=== PATIENT | female | born 1970 | race Caucasian/White ===

== ENCOUNTER 2018-01-21 02:54 | Observation (INO) ==
[2018-01-21 03:02] VITALS: BMI 21.1
--- NOTE | 2018-01-21 03:31 | RAD ---
Chest, one view Indication: Chest pain Comparison: 03/11/2014 Findings: The patient is rotated to the left. Accounting for this, the cardiac silhouette is stable. The lungs are grossly clear without focal infiltrates or pleural effusion. Thoracic dextroscoliosis i s similar to prior. Impression: No acute chest process. Reported By:
[2018-01-21 03:40] LABS: BASOPHILS # (AUTO) 0.1 X10^3/uL (0.0-0.1); BASOPHILS % (AUTO) 1.5 % (0.2-1.0); EOSINOPHILS # (AUTO) 0.4 x10^3/uL (0.0-0.2); EOSINOPHILS % (AUTO) 7.7 % (0.9-2.9); HEMOGLOBIN 12.5 g/dL (12.0-16.0); LYMPHOCYTES # (AUTO) 2.5 X10^3/uL (1.3-2.9); LYMPHOCYTES % (AUTO) 54.5 % (21.0-51.0); MEAN CORPUSCULAR HEMOGLOBIN 32.3 pg (27.0-34.0); MEAN CORPUSCULAR HGB CONC 33.6 g/dL (33.0-35.0); MEAN CORPUSCULAR VOLUME 95.9 fL (80.0-100.0); MEAN PLATELET VOLUME 8.5 fL (7.4-11.0); MONOCYTES # (AUTO) 0.3 x10^3/uL (0.3-0.8); MONOCYTES % (AUTO) 7.5 % (0.0-13.0); NEUTROPHILS # (AUTO) 1.3 x10^3/uL (2.2-4.8); NEUTROPHILS % (AUTO) 28.8 % (42.0-75.0); PLATELET COUNT 343 X10^3/uL (150.0-450.0); RED BLOOD COUNT 3.86 X10^6/uL (3.5-5.4); RED CELL DISTRIBUTION WIDTH 13.1 % (11.6-16.5); WHITE BLOOD COUNT 4.5 X10^3/uL (3.6-10.0)
--- NOTE | 2018-01-21 03:49 | DR.CP ---
HPI Time Seen Time Seen by Provider: 01/21/18 03:32 PCP Primary Care Physician: SYLVESTER Complaint Chief Complaint Doctor Comments: Patient states that has chest tightness, rapid beating that is ongoing. She denies a history of cardiac disease. She states that she was referred to a molecular biology scientist a few weeks ago because her feet would turn blue. Chief Complaint:: PT STATES" FOR A MINUTE IT FELT LIKE MY HEART WAS GOING TO BEAT OUT OF MY CHEST. 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 Family History History of Family Medical Conditions: Yes Family Medical History: Diabetes Mellitus, CA and Hypertension Social History Does any household member use tobacco: No Alcohol Use: None Do you use any recreational Drugs:: No Lives With: Family Lives Where: Home infectious screening In the last 2 months have you had wt loss of >10#?: NO Have you had fever, night sweats or hemotysis?: No Have you traveled outside the country in the last 6 months?: No Isolation: Standard PE Vitals Vitals: Temperature 98.1 F Pulse Rate [Left] 75 Pulse Rate 89 Respiratory Rate 18 Blood Pressure [Right Arm] 103/59 Blood Pressure 145/71 O2 Sat by Pulse Oximetry 99 General General Appearance: Alert and In No Apparent Distress Head Head Exam: Normal Inspection, Atraumatic and Normocephalic Eyes Eye exam: Normal Appearance, PERRL and EOMI ENT ENT Exam: Normal Exam, Normal Oropharynx and Normal External Ear Exam Chest Chest Inspection: Normal Inspection and Symmetric Chest Wall Rise Respiratory Respiratory Exam: Normal Lung Sounds Bilat Respiratory Exam: Bilateral: Clear to Auscultation Cardiovascular Cardiovascular Exam: Regular Rate and Normal Rhythm Edema: Normal Abdominal Exam Abdominal Exam: Normal Inspection, Normal Bowel Sounds and Soft Abdominal Tenderness: RUQ, RLQ and LUQ Extremities Extremities Exam: Normal Inspection, Full ROM, Normal Capillary Refill and Edema Back Back Exam: Normal Inspection and Full ROM Psychiatric Psychiatric Exam: Normal Affect and Normal Mood Skin Skin Exam: Warm, Dry and Normal Color ROR Labs Reviewed Laboratory Results Reviewed?: Yes Result Diagrams: 01/22/18 04:45 01/22/18 04:45 Laboratory: WBC 4.8 X10^3/uL (3.6-10.0) 01/22/18 04:45 RBC 3.76 X10^6/uL (3.5-5.4) 01/22/18 04:45 Hgb 11.9 g/dL (12.0-16.0) L 01/22/18 04:45 Hct 35.8 % (36.0-47.0) L 01/22/18 04:45 MCV 95.1 fL (80.0-100.0) 01/22/18 04:45 MCH 31.7 pg (27.0-34.0) 01/22/18 04:45 MCHC 33.3 g/dL (33.0-35.0) 01/22/18 04:45 RDW 13.2 % (11.6-16.5) 01/22/18 04:45 Plt Count 298 X10^3/uL (150.0-450.0) 01/22/18 04:45 MPV 8.3 fL (7.4-11.0) 01/22/18 04:45 Neut % (Auto) 41.7 % (42.0-75.0) L 01/22/18 04:45 Lymph % (Auto) 43.1 % (21.0-51.0) 01/22/18 04:45 [place] % (Auto) 7.9 % (0.0-13.0) 01/22/18 04:45 Eos % (Auto) 6.1 % (0.9-2.9) H 01/22/18 04:45 Baso % (Auto) 1.2 % (0.2-1.0) H 01/22/18 04:45 Neut # (Auto) 2.0 x10^3/uL (2.2-4.8) L 01/22/18 04:45 Lymph # (Auto) 2.1 X10^3/uL (1.3-2.9) 01/22/18 04:45 [place] # (Auto) 0.4 x10^3/uL (0.3-0.8) 01/22/18 04:45 Eos # (Auto) 0.3 x10^3/uL (0.0-0.2) H 01/22/18 04:45 Baso # (Auto) 0.1 X10^3/uL (0.0-0.1) 01/22/18 04:45 Absolute Nucleated RBC 0.1 /100WBC 01/22/18 04:45 INR Target Range - 01/21/18 03:22 INR 0.92 (0.8-1.3) 01/21/18 03:22 APTT 29.0 SECONDS (22.9-36.5) 01/21/18 03:22 PTT Comment - 01/21/18 03:22 Sodium 139 mmol/L (136-145) 01/22/18 04:45 Corrected Sodium TNP 01/22/18 04:45 Potassium 4.1 mmol/L (3.5-5.1) 01/22/18 04:45 Chloride 106 mmol/L (98-107) 01/22/18 04:45 Carbon Dioxide 26.9 mmol/L (21-32) 01/22/18 04:45 BUN 11 mg/dL (7-18) 01/22/18 04:45 Creatinine 0.76 mg/dL (0.55-1.02) 01/22/18 04:45 Est GFR (MDRD) Af Amer > 60 (>60) 01/22/18 04:45 Est GFR (MDRD) Non-Af > 60 (>60) 01/22/18 04:45 Glucose 94 mg/dL (65-99) 01/22/18 04:45 Calcium 7.7 mg/dL (8.5-10.1) L 01/22/18 04:45 Corrected Calcium 8.4 mg/dL (8.5-10.1) L 01/22/18 04:45 Magnesium 2.2 mg/dL (1.7-2.9) 01/22/18 04:45 Total Bilirubin 0.30 mg/dL (0.2-1.0) 01/22/18 04:45 AST 26 Units/L (15-37) 01/22/18 04:45 ALT 24 Units/L (12-78) 01/22/18 04:45 Alkaline Phosphatase 70 Units/L (46-116) 01/22/18 04:45 Creatine Kinase 45 Units/L (26-192) 01/21/18 15:10 CK-MB (CK-2) < 1.0 ng/mL (0-4.0) 01/21/18 15:10 CK/CKMB % Calc 2.2 % (<4) 01/21/18 15:10 Troponin I < 0.02 ng/mL (0-1.5) 01/21/18 15:10 C-Reactive Protein 1.40 mg/L (0-3.0) 01/21/18 03:22 Total Protein 6.6 g/dL (6.4-8.2) 01/22/18 04:45 Albumin 3.1 g/dL (3.4-5.0) L 01/22/18 04:45 Globulin 3.5 g/dL (2.5-4.5) 01/22/18 04:45 Albumin/Globulin Ratio 0.9 Ratio (1.1-2.1) L 01/22/18 04:45 Triglycerides 118 mg/dL (0-150) 01/22/18 04:45 Cholesterol 198 mg/dL (0-200) 01/22/18 04:45 LDL Cholesterol, Calc 111 mg/dL (0-100) H 01/22/18 04:45 HDL Cholesterol 63 mg/dL (40-60) H 01/22/18 04:45 Cholesterol/HDL Ratio 3.1 (0.0-5.0) 01/22/18 04:45 Specimen Type Clean catch urine 01/21/18 13:04 Urine Color Yellow (YELLOW) 01/21/18 13:04 Urine Appearance Clear (CLEAR) 01/21/18 13:04 Urine pH 8.0 (5.0 - 8.0) 01/21/18 13:04 Ur Specific [place] 1.015 (1.000-1.030) 01/21/18 13:04 Urine Protein Negative (NEGATIVE) 01/21/18 13:04 Urine Glucose (UA) Negative (NEGATIVE) 01/21/18 13:04 Urine Ketones Negative (NEGATIVE) 01/21/18 13:04 Urine Occult Blood Negative (NEGATIVE) 01/21/18 13:04 Urine Nitrite Negative (NEGATIVE) 01/21/18 13:04 Urine Bilirubin Negative (NEGATIVE) 01/21/18 13:04 Urine Urobilinogen Normal (NORMAL) 01/21/18 13:04 Ur Leukocyte Esterase 2+ (NEGATIVE) 01/21/18 13:04 Urine RBC 0-2 /HPF (NONE SEEN) 01/21/18 13:04 Urine WBC 0-2 /HPF (NONE SEEN) 01/21/18 13:04 Ur Squamous Epith Cells Few /HPF (NEGATIVE) 01/21/18 13:04 Urine Bacteria Negative /HPF (NEGATIVE) 01/21/18 13:04 Ur Culture Indicated? No/not indicated 01/21/18 13:04 H. pylori IgG Antibody Negative (NEGATIVE) 01/21/18 03:22 XRAY XRAY Findings: Chest: No acute chest process. CT Brain: No acute intracranial process Instructions Instructions: Form - Blood Pressure Record Sheet Nonspecific Chest Pain, [id number] Hypertension, [id number] Managing Your Hypertension Forms: Patient Portal
[2018-01-21 03:51] LABS: BLOOD UREA NITROGEN 12 mg/dL (7-18); CALCIUM 8.5 mg/dL (8.5-10.1); CARBON DIOXIDE 27.9 mmol/L (21-32); CHLORIDE 103 mmol/L (98-107); COR NA(FOR HYPERGLY) 140 mmol/L (136-145); CREATININE 0.88 mg/dL (0.55-1.02); SODIUM 140 mmol/L (136-145); TROPONIN I < 0.02 ng/mL (0-1.5); eGFR NON BLACK RACES > 60 (>60)
[2018-01-21 03:56] LABS: ALANINE AMINOTRANSFERASE 22 Units/L (12-78); ALBUMIN 3.4 g/dL (3.4-5.0); ALKALINE PHOSPHATASE 78 Units/L (46-116); ASPARTATE AMINO TRANSFERASE 21 Units/L (15-37); CKMB % 2.1 % (<4); CREATINE KINASE 48 Units/L (26-192); CREATINE KINASE MB < 1.0 ng/mL (0-4.0); TOTAL PROTEIN 7.1 g/dL (6.4-8.2)
--- NOTE | 2018-01-21 04:55 | CT ---
HISTORY: Dizziness, headache Study: CT brain without contrast Comparison: None Technique: Multiple axial images of the brain were obtained from the skull base to the vertex without administra tion of IV contrast. Findings: No acute intraparenchymal hemorrhage or mass can be identified. No extra-axial fluid collections are seen. No alteration in the attenuation of the brain parenchyma can be identified to suggest acute o r subacute ischemic change. The ventricular system is symmetric and nondilated. The extracranial st ructures are grossly unremarkable. IMPRESSION: 1. No acute intracranial process can be identified. Reported By:
[2018-01-21] MEDS ORDERED: IMITREX TAB PO PRN (06:33)
[2018-01-21] MEDS ORDERED: K-LYTE EFFERVESCENT PO PRN (07:37)
[2018-01-21] MEDS ORDERED: POTASSIUM CHLORIDE LIQ 20 MEQ UDC PO PRN (07:37)
[2018-01-21] MEDS ORDERED: K-RIDER 10 MEQ/NS 100 ML 10 MEQ/100 ML BAG IV PRN (07:37)
[2018-01-21] MEDS ORDERED: POTASSIUM CHL 40 MEQ/NS 0.45% 500 ML IV PRN (07:37)
[2018-01-21] MEDS ORDERED: POTASSIUM CHL 60 MEQ/NS 0.45% 500 ML IV PRN (07:37)
[2018-01-21] MEDS ORDERED: ZESTRIL TAB 5 MG PO SCH (09:00)
[2018-01-21] MEDS: TOPAMAX PO SCH (09:18)
[2018-01-21] MEDS: ESTRACE PO SCH (09:18)
[2018-01-21] MEDS: FOLIC ACID TAB 1 MG PO SCH (09:19)
[2018-01-21] MEDS: NS 1000 ML 1,000 ML IV SCH ×2 (09:19→22:55)
[2018-01-21] MEDS: MAGNESIUM SULFATE 1 GRAM/100 mL PREMIX 1 GM/100 ML BAG IV PRN ×2 (09:20→13:49)
[2018-01-21] MEDS: LEVSIN/MAALOX/LIDOC VISC PO SCH ×4 (09:27→21:16)
[2018-01-21] MEDS: PROTONIX INJ 40 MG VIAL IVP SCH (09:31)
[2018-01-21 10:38] LABS: CKMB % 1.7 % (<4); CREATINE KINASE 60 Units/L (26-192); CREATINE KINASE MB < 1.0 ng/mL (0-4.0); TROPONIN I < 0.02 ng/mL (0-1.5)
--- NOTE | 2018-01-21 11:22 | VAS ---
History: Dizziness and headache Study: Carotid duplex ultrasound Comparison: None Findings: Images show no significant plaque formation. Maximum systolic velocity in the right common carotid artery is 81 centimeters/second and in the righ t internal carotid artery is 96 centimeters/second for ratio of 1.21. Graft maximum systolic velocity in the left common carotid artery is 87 centimeters/second and in the internal carotid artery is 96 centimeters/second for ratio of 1.2. There is antegrade flow in the vertebral arteries. Impression: Negative Reported By:
[2018-01-21 13:19] LABS: BILIRUBIN,URINE NEGATIVE (NEGATIVE); BLOOD/HEMOGLOBIN,URINE NEGATIVE (NEGATIVE); GLUCOSE, URINE NEGATIVE (NEGATIVE); KETONES,URINE NEGATIVE (NEGATIVE); LEUKOCYTE ESTERASE ,URINE 2+ (NEGATIVE); NITRITES,URINE NEGATIVE (NEGATIVE); PROTEIN,URINE NEGATIVE (NEGATIVE); UROBILINOGEN,URINE NORMAL (NORMAL)
--- NOTE | 2018-01-21 13:22 | DR.H&P ---
H&P - History & Physical for Day of: H&P Date: 01/21/18 - Chief Complaint Chief Complaint: CHEST PAIN, RIGHT SIDE HEADACHE - History of Present Illness History of Present Illness: 47[facility] ER ADMISSION AFTER PRESENTING WITH CO CHEST PAIN AND ONSET OF RIGHT SIDE INTRACTABLE LEO WITH EPISODE OF VISUAL DISTURBANCE AND NAUSEA. PT STATES LEO RESOLVED AT THIS TIME. PT STATES CP WOKE HER UP THIS AM , DENIES INCREASED SOB OR DIAPHORESIS. PT HAS PMH OF HTN AND MIGRAINES. PT HAS BEEN HAVING INTERMITTEN EPISODES OF CHEST PAIN AND VOICES COUGHING EPISODES WHILE EATING AND "HAS TO BE CAREFUL SWALLOWING" PT HAD EKG WITH NSR, CT HEAD WNL , PT WAS HYPERTENSIVE ON ARRIVAL. PT ADMITTED FOR EVALUATION OF CHEST PAIN AND LEO. 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 - Family History Family Medical History: Diabetes Mellitus, OR, Hypertension - Social History Type of Tobacco Use: None Does any household member use tobacco: No Alcohol Use: None Drug Use: None - Medications Home Medications: Sulfa (Sulfonamide Antibiotics) [SULFA] Allergy (Verified 01/21/18 02:57) CONTINUE taking the following medications estradiol 1 tab PO DAILY 01/21/18 [History] folic acid 1 tab PO DAILY 01/21/18 [History] lisinopril 1 tab PO DAILY 01/21/18 [History] topiramate 1 tab PO DAILY 01/21/18 [History] zolpidem 1 tab PO HS 01/21/18 [History] - Review of Systems Constitutional: No Symptoms Reported Eyes: No Symptoms Reported ENT: No Symptoms Reported Respiratory: No Symptoms Reported Cardiovascular: Chest Pain, Palpitations Gastrointestinal: Nausea Genitourinary: No Symptoms Reported Musculoskeletal: No Symptoms Reported Skin: No Symptoms Reported Neurological: Other (headache, dizziness) - Physical Exam Vital Signs: Temperature 97.3 F Pulse Rate [Left] 76 Pulse Rate 89 Respiratory Rate 20 Blood Pressure [Right Arm] 124/70 Blood Pressure 145/71 O2 Sat by Pulse Oximetry 100 Oriented: Normal Eyes: Blurred Vision (reports episode of right eye blurred vision, resolved on assessment) Ear: Normal Nose: Normal Throat: Normal Respiratory: Clear Throughout Cardiovascular: Normal, Other. negative: Edema Auscultation: Bowel Sounds: Normal Palpation: Normal Tenderness: Epigastric Skin: Normal Musculoskeletal: Normal Psychiatric: Anxiety Affect: Anxious Speech Pattern: Clear, Appropriate - Assessment/Plan (1) Chest pain Status: Acute Plan: admit, serial ce and ekg. bp monitoring. gi symptoms, ppi and gi cocktail. pain control, carotid us. am lipid level. verify home meds, cxr on admission, ct head on admission (2) Headache above the eye region Status: Acute (3) Hypertension Status: Chronic - Allergies Allergies/Adverse Reactions: Allergies Allergy/AdvReac Type Severity Reaction Status Date / Time Sulfa (Sulfonamide Allergy Verified 01/21/18 02:57 Antibiotics) [SULFA]
[2018-01-21 13:27] LABS: APPEARANCE,URINE CLEAR (CLEAR); BACTERIA,URINE NEGATIVE /HPF (NEGATIVE); COLOR,URINE YELLOW (YELLOW); RBC,URINE 0-2 /HPF (NONE SEEN); SQUAMOUS EPITHELIAL CELL,UR FEW /HPF (NEGATIVE)
[2018-01-21 15:46] LABS: CKMB % 2.2 % (<4); CREATINE KINASE 45 Units/L (26-192); CREATINE KINASE MB < 1.0 ng/mL (0-4.0); TROPONIN I < 0.02 ng/mL (0-1.5)
[2018-01-21] MEDS ORDERED: AMBIEN PO SCH (21:00)
[2018-01-22 05:23] LABS: BASOPHILS # (AUTO) 0.1 X10^3/uL (0.0-0.1); BASOPHILS % (AUTO) 1.2 % (0.2-1.0); EOSINOPHILS # (AUTO) 0.3 x10^3/uL (0.0-0.2); EOSINOPHILS % (AUTO) 6.1 % (0.9-2.9); HEMATOCRIT 35.8 % (36.0-47.0); HEMOGLOBIN 11.9 g/dL (12.0-16.0); LYMPHOCYTES # (AUTO) 2.1 X10^3/uL (1.3-2.9); LYMPHOCYTES % (AUTO) 43.1 % (21.0-51.0); MEAN CORPUSCULAR HEMOGLOBIN 31.7 pg (27.0-34.0); MEAN CORPUSCULAR HGB CONC 33.3 g/dL (33.0-35.0); MEAN CORPUSCULAR VOLUME 95.1 fL (80.0-100.0); MEAN PLATELET VOLUME 8.3 fL (7.4-11.0); MONOCYTES # (AUTO) 0.4 x10^3/uL (0.3-0.8); MONOCYTES % (AUTO) 7.9 % (0.0-13.0); NEUTROPHILS % (AUTO) 41.7 % (42.0-75.0); PLATELET COUNT 298 X10^3/uL (150.0-450.0); RED BLOOD COUNT 3.76 X10^6/uL (3.5-5.4); RED CELL DISTRIBUTION WIDTH 13.2 % (11.6-16.5); WHITE BLOOD COUNT 4.8 X10^3/uL (3.6-10.0)
[2018-01-22 05:41] LABS: ALANINE AMINOTRANSFERASE 24 Units/L (12-78); ALBUMIN 3.1 g/dL (3.4-5.0); ALKALINE PHOSPHATASE 70 Units/L (46-116); ASPARTATE AMINO TRANSFERASE 26 Units/L (15-37); BLOOD UREA NITROGEN 11 mg/dL (7-18); CALCIUM 7.7 mg/dL (8.5-10.1); CARBON DIOXIDE 26.9 mmol/L (21-32); CHLORIDE 106 mmol/L (98-107); CHOL/HDL RATIO 3.1 (0.0-5.0); CHOLESTEROL 198 mg/dL (0-200); COR CA(FOR HYPOALB) 8.4 mg/dL (8.5-10.1); CREATININE 0.76 mg/dL (0.55-1.02); HDL CHOLESTEROL 63 mg/dL (40-60); MAGNESIUM 2.2 mg/dL (1.7-2.9); SODIUM 139 mmol/L (136-145); TOTAL PROTEIN 6.6 g/dL (6.4-8.2); TRIGLYCERIDES 118 mg/dL (0-150); eGFR NON BLACK RACES > 60 (>60)
[2018-01-22] MEDS ORDERED: ZESTRIL TAB 5 MG PO SCH (09:00)
[2018-01-22 09:01] VITALS: BP 103/59
[2018-01-22] MEDS: LEVSIN/MAALOX/LIDOC VISC PO SCH (10:08)
[2018-01-22] MEDS: ESTRACE PO SCH (10:08)
[2018-01-22] MEDS: FOLIC ACID TAB 1 MG PO SCH (10:08)
[2018-01-22] MEDS: PROTONIX INJ 40 MG VIAL IVP SCH (10:09)
[2018-01-22] MEDS: TOPAMAX PO SCH (10:09)
== END 2018-01-22 10:58 | disposition home or self-care (01) ==
LOC: ER 02:55 → MED/SURG 02:55
PROVIDERS: ADMIT Internal Medicine; ATTEND Internal Medicine
DX: R94.31 Abnormal electrocardiogram [ECG] [EKG]; R07.89 Other chest pain; R00.0 Tachycardia, unspecified; I10 Essential (primary) hypertension; Z79.899 Other long term (current) drug therapy; R51 Headache; G43.809 Other migraine, not intractable, without status migrainosus; R42 Dizziness and giddiness
CPT/HCPCS: 36415; 70450; 71010; 71045; 80053; 80061; 81001; 82550; 82553; 83735; 84484; 85025; 85610; 85730; 86140; 86677; 93005; 93010; 93880; 94760; 96365; 99284; A4222; C9113; G0378; J3475; J7030; J8499

== ENCOUNTER 2019-04-10 18:07 | Observation (INO) ==
[2019-04-10] MEDS ORDERED: NS 1000 ML 1,000 ML ONE (18:15)
[2019-04-10] MEDS ORDERED: NS 1000 ML 1,000 ML IV ONE (18:27)
--- NOTE | 2019-04-10 18:36 | DR.DIZZY ---
HPI - Time seen Time seen: 18:30 - PCP Primary Care Physician: BRICE - Complaint Chief Complaint Doctor Comments: Patient is complaining of dizziness at home around two hours ago with low blood pressure and dizziness. States she is a patient of Ms Elias and is taking Lisinopril 5mg for high blood pressure, Topamax, estridiol and another pill. She denies chest pain, SOB, cold, cough, fever or chills. States her appetite is good and she has been eating and drinking normally. she denies vomiting, diarrhea or vaginal bleeding. States she has had a hysterectomy. Chief Complaint:: PT STATES I USUALLY HAVE HIGH BLOOD PRESSURE AND TAKE LISINOPRIL 5 MG PO ONCE A DAY. I TOOK A MUSCLE RELAXER ZANAFLEX FOR MY LEFT SHOULDER PAIN. AFTER I TOOK ZANAFLEX GOT DIZZY AND BLOOD PRESSURE 60/50 AT HOME." - Nurses Notes Reviewed Nurses Notes Review: Yes - Source History Provided: Patient - Mode of Arrival Mode of Arrival: Ambulatory - Timing Onset of Chief Complaint: 04/10/19 Came on: Gradually Symptom Onset: Known Onset of Symptoms Start Date: 04/10/19 Onset of Symptoms Start Time: 17:00 - Duration Duration: Intermittent How lon Duration: Hours - Location of Weakness Weakness Location: Generalized - Context Onset: At rest Does pt take pot. toxic medication?: No History of: None Stroke Symptoms: Dizziness - Severity Severity: Abnormal activity level - Modifying factors Worsens: Change in Position - Associated signs and symptoms Associated Signs and Symptoms: Faintness, Weak PMH - PMH Past Medical History: Yes Past Medical History: Hypertension, Migraines Past Surgical History: Yes Surgical History: Cholecystectomy, Hysterectomy - Family History History of Family Medical Conditions: Yes Family Medical History: Hypertension - Social History Does any household member use tobacco: No Alcohol Use: None Do you use any recreational Drugs:: No Lives With: Spouse, Family Lives Where: Home - infectious screening In the last 2 months have you had wt loss of >10#?: NO Have you had fever, night sweats or hemotysis?: No Have you traveled outside the country in the last 6 months?: No Isolation: Standard ROS - Review of Systems Constitutional: No Symptoms Reported Eyes: No Symptoms Reported ENTM: No Symptoms Reported Respiratoy: No Symptoms Reported. negative: See HPI, Productive Cough, Non- Productive Cough, Moist Cough, Dry Cough, Hacking Cough, Barking Cough, Brassy Cough, Orthopnea, Short of Breath, Stridor, Wheezing, Hemoptysis, Other Cardiovascular: No Symptoms Reported. negative: See HPI, Chest Pain, Edema, Palpitations, Syncope, Cyanosis, Skin Mottling, Other Gastrointestinal/Abdominal: No Symptoms Reported. negative: See HPI, Abdominal Pain, Constipation, Diarrhea, Nausea, Vomiting, Food Intolerance, Other Genitourinary: No Symptoms Reported. negative: See HPI, Discharge, Dysuria, Frequency, Hematuria, Pain, Bleeding, Other Neurological: No Symptoms Reported, Weakness, Dizziness, Problems Walking Musculoskeletal: No Symptoms Reported Integumentary: No Symptoms Reported Hematologic/Lymphatic: No Symptoms Reported. negative: See HPI, Anemia, Blood Clots, Easy Bleeding, Easy Bruising, Swollen Glands, Lymphadenopathy, Other Endocrine: No Symptoms Reported Psychiatric: No Symptoms Reported. negative: See HPI, Anxiety, Depression, [place] llucinations, Excessive crying, Suicidal, Other PE - General Limitations: No Limitations General Appearance: Alert, In Distress (moderate) - Head Head Exam: Normal Inspection, Atraumatic, Normocephalic - Eyes Eye exam: Normal Appearance, PERRL, EOMI. negative: Scleral Icterus, Conjunctival Injection, Nystagmus, Miosis, Mydrasis, Periorbital Swelling, Periorbital Tenderness, Other Pupils: Regular, Round: Bilateral Sclera/Conjunctival: Normal Inspection: Bilateral Anterior Chamber: Normal Inspection: Bilateral Posterior Chamber: Normal Inspection: Bilateral - ENT ENT Exam: Normal Exam, Normal Oropharynx, Normal External Ear Exam, Mucous Membranes Moist, TM's Normal Bilaterally - Neck Neck Exam: Normal Inspection, Full ROM, Trachea Midline. negative: Tenderness, Meningismus, Lymphadenopathy, Thyromegaly, Other - Chest Chest Inspection: Normal Inspection, Symmetric Chest Wall Rise. negative: Tenderness, Rash, Abscess, Other - Respiratory Respiratory Exam: Normal Lung Sounds Bilat Respiratory Exam: Bilateral Clear to Auscultation - Cardiovascular Cardiovascular Exam: Regular Rate, Normal Rhythm, Normal Heart Sounds - Abdominal Exam Abdominal Exam: Normal Inspection, Normal Bowel Sounds, Soft. negative: Distention, Tenderness, Guarding, Rebound, Rigidity, Dimnished Bowel Sounds, Hyperactive Bowel Sounds, Hypoactive Bowel Sounds, Organomegaly, Trauma, Incision, Ascites, Mass, Bruit, Pulsatile Mass, Hernia, Other Abdominal Tenderness: negative: RUQ, RLQ, LUQ, LLQ, Epigastrium, Suprapubic, Diffuse, Mild, Moderate, Severe, Other - Rectal Rectal Exam: Deferred - Extremeties Extremities Exam: Normal Inspection, Full ROM, Normal Capillary Refill. n egative: Tenderness, Edema, Joint Swelling, Calf Tenderness, Other - Back Back Exam: Normal Inspection, Full ROM. negative: Tenderness, (R) CVA Tenderness, (L) CVA Tenderness, Muscle Spasm, Paraspinal Tenderness, Vertebral Tenderness, Rashes, (R) Sciatic Notch Tenderness, (L) Sciatic Notch Tendern, (R) Straight Leg Raise, (L) Straight Leg Raise, Other - Neurologic Neurological Exam: Alert, Oriented X3, CN II-XII Intact, Reflexes Normal. negative: Normal Gait (gait not tested) Speech: Fluid Speech Cranial Nerve Exam: EOM Function (II, III, IV, ): Normal, Facial Sensation (V): Normal, Facial Palsy (VII): Normal, Gag reflex (XI): Normal, Spinal Accessory Function (XI): Normal, Tongue Deviation: Normal Cerebellar Function: negative: Normal Gait (gait not tested) Motor Strength - LUE: 5/5 Motor Strength - RUE: 5/5 Motor Strength - LLE: 5/5 Motor Strength - RLE: 5/5 Upper Motor Neuron Exam: Babinski Sign: Normal Sensory Exam Upper Extremity: Light Touch: Normal Sensory Exam Lower Extremity: Light Touch: Normal DTR: bicep (L): 2+, bicep (R): 2+, Patellar (L): 2+, patellar (R): 2+ - Psychiatric Psychiatric Exam: Normal Affect, Normal Mood. negative: Depressed, Agitated, Anxious, Flat Affect, Manic, Homicidal Ideation, Suicidal Ideation, Other - Skin Skin Exam: Warm, Dry, Intact, Normal Color. negative: Rash, Cyanosis, Diaphoresis, Erythema, Pallor, Mottled, Other - Vital Signs Vitals: Temperature 97.8 F Pulse Rate 65 Respiratory Rate 20 Blood Pressure [Right Arm] 103/59 Blood Pressure 93/54 O2 Sat by Pulse Oximetry 100 ROR - Labs Reviewed Laboratory Results Reviewed?: Yes (All labs and x-ray results reviewed and discussed with patient) Result Diagrams: 04/10/19 18:45 04/10/19 18:45 - XRAY XRAY Interpreted by: Radiologist (CXR: No acute cardiopulmonary disease) - EKG Rate: 56 [place]: Normal Rhythm: SB Block: None Hypertrophy: None ST: Nonsp - Labs Reviewed Laboratory: WBC 6.5 X10^3/uL (3.6-10.0) 04/10/19 18:45 RBC 3.11 X10^6/uL (3.5-5.4) L 04/10/19 18:45 Hgb 10.0 g/dL (12.0-16.0) L 04/10/19 18:45 Hct 29.8 % (36.0-47.0) L 04/10/19 18:45 MCV 96.0 fL (80.0-100.0) 04/10/19 18:45 MCH 32.2 pg (27.0-34.0) 04/10/19 18:45 MCHC 33.5 g/dL (33.0-35.0) 04/10/19 18:45 RDW 13.7 % (11.6-16.5) 04/10/19 18:45 Plt Count 193 X10^3/uL (150.0-450.0) 04/10/19 18:45 MPV 9.0 fL (7.4-11.0) 04/10/19 18:45 Neut % (Auto) 49.7 % (42.0-75.0) 04/10/19 18:45 Lymph % (Auto) 35.1 % (21.0-51.0) 04/10/19 18:45 [place] % (Auto) 9.9 % (0.0-13.0) 04/10/19 18:45 Eos % (Auto) 4.6 % (0.9-2.9) H 04/10/19 18:45 Baso % (Auto) 0.7 % (0.2-1.0) 04/10/19 18:45 Neut # (Auto) 3.3 x10^3/uL (2.2-4.8) 04/10/19 18:45 Lymph # (Auto) 2.3 X10^3/uL (1.3-2.9) 04/10/19 18:45 [place] # (Auto) 0.6 x10^3/uL (0.3-0.8) 04/10/19 18:45 Eos # (Auto) 0.3 x10^3/uL (0.0-0.2) H 04/10/19 18:45 Baso # (Auto) 0.0 X10^3/uL (0.0-0.1) 04/10/19 18:45 Absolute Nucleated RBC 0.1 /100WBC 04/10/19 18:45 PT 13.7 SECONDS (11.8-14.3) 04/10/19 18:45 INR Target Range - 04/10/19 18:45 INR 1.09 (0.8-1.3) 04/10/19 18:45 APTT 30.4 SECONDS (22.9-36.5) 04/10/19 18:45 PTT Comment - 04/10/19 18:45 D-Dimer < 100 ng/mL (0-400) 04/10/19 18:45 Sodium 137 mmol/L (136-145) 04/10/19 18:45 Corrected Sodium 138 mmol/L (136-145) 04/10/19 18:45 Potassium 3.8 mmol/L (3.5-5.1) 04/10/19 18:45 Chloride 106 mmol/L (98-107) 04/10/19 18:45 Carbon Dioxide 23.4 mmol/L (21-32) 04/10/19 18:45 BUN 11 mg/dL (7-18) 04/10/19 18:45 Creatinine 0.79 mg/dL (0.55-1.02) 04/10/19 18:45 Est GFR (MDRD) Af Amer > 60 (>60) 04/10/19 18:45 Est GFR (MDRD) Non-Af > 60 (>60) 04/10/19 18:45 Glucose 134 mg/dL (65-99) H 04/10/19 18:45 Calcium 7.9 mg/dL (8.5-10.1) L 04/10/19 18:45 Corrected Calcium 8.7 mg/dL (8.5-10.1) 04/10/19 18:45 Magnesium 1.9 mg/dL (1.7-2.9) 04/10/19 18:45 Total Bilirubin 0.10 mg/dL (0.2-1.0) L 04/10/19 18:45 AST 14 Units/L (15-37) L 04/10/19 18:45 ALT 10 Units/L (12-78) L 04/10/19 18:45 Alkaline Phosphatase 59 Units/L (46-116) 04/10/19 18:45 Creatine Kinase 34 Units/L (26-192) 04/10/19 18:45 CK-MB (CK-2) < 1.0 ng/mL (0-4.0) 04/10/19 18:45 CK/CKMB % Calc 2.9 % (<4) 04/10/19 18:45 Troponin I < 0.02 ng/mL (0-1.5) 04/10/19 18:45 Total Protein 6.2 g/dL (6.4-8.2) L 04/10/19 18:45 Albumin 3.0 g/dL (3.4-5.0) L 04/10/19 18:45 Globulin 3.2 g/dL (2.5-4.5) 04/10/19 18:45 Albumin/Globulin Ratio 0.9 Ratio (1.1-2.1) L 04/10/19 18:45 Opioid - Opioid Risk Tool Total: 0 Total Score Risk Category: Low Risk - Diagnosis Discharge Problem: Acute hypotension, Sinus bradycardia, Hyperglycemia, Normocytic anemia, Dehydration - Discharge Plan Disposition: ADMITTED INPATIENT Condition: Stable
--- NOTE | 2019-04-10 18:44 | RAD ---
HISTORY: Dizziness and low blood pressure.Study: Portable chest.Comparison: Chest x-ray dated January 21, 2018. Findings:The trachea is midline. The cardiac silhouette is unremarkable. No obvious focal consolidation, pleural effusion, or pneumothorax. The bony thorax appears unchanged. IMPRESSION: No acute cardiopulmonary disease.Reported By:
[2019-04-10 18:56] LABS: BASOPHILS % (AUTO) 0.7 % (0.2-1.0); EOSINOPHILS # (AUTO) 0.3 x10^3/uL (0.0-0.2); EOSINOPHILS % (AUTO) 4.6 % (0.9-2.9); HEMATOCRIT 29.8 % (36.0-47.0); LYMPHOCYTES # (AUTO) 2.3 X10^3/uL (1.3-2.9); LYMPHOCYTES % (AUTO) 35.1 % (21.0-51.0); MEAN CORPUSCULAR HEMOGLOBIN 32.2 pg (27.0-34.0); MEAN CORPUSCULAR HGB CONC 33.5 g/dL (33.0-35.0); MONOCYTES # (AUTO) 0.6 x10^3/uL (0.3-0.8); MONOCYTES % (AUTO) 9.9 % (0.0-13.0); NEUTROPHILS # (AUTO) 3.3 x10^3/uL (2.2-4.8); NEUTROPHILS % (AUTO) 49.7 % (42.0-75.0); PLATELET COUNT 193 X10^3/uL (150.0-450.0); RED BLOOD COUNT 3.11 X10^6/uL (3.5-5.4); RED CELL DISTRIBUTION WIDTH 13.7 % (11.6-16.5); WHITE BLOOD COUNT 6.5 X10^3/uL (3.6-10.0)
[2019-04-10 19:10] LABS: BLOOD UREA NITROGEN 11 mg/dL (7-18); CALCIUM 7.9 mg/dL (8.5-10.1); CARBON DIOXIDE 23.4 mmol/L (21-32); CHLORIDE 106 mmol/L (98-107); COR NA(FOR HYPERGLY) 138 mmol/L (136-145); CREATININE 0.79 mg/dL (0.55-1.02); SODIUM 137 mmol/L (136-145); TROPONIN I < 0.02 ng/mL (0-1.5); eGFR NON BLACK RACES > 60 (>60)
[2019-04-10 19:15] LABS: ALANINE AMINOTRANSFERASE 10 Units/L (12-78); ALKALINE PHOSPHATASE 59 Units/L (46-116); ASPARTATE AMINO TRANSFERASE 14 Units/L (15-37); CKMB % 2.9 % (<4); COR CA(FOR HYPOALB) 8.7 mg/dL (8.5-10.1); CREATINE KINASE 34 Units/L (26-192); CREATINE KINASE MB < 1.0 ng/mL (0-4.0); MAGNESIUM 1.9 mg/dL (1.7-2.9); TOTAL PROTEIN 6.2 g/dL (6.4-8.2)
[2019-04-10] MEDS: NS 1000 ML 1,000 ML IV SCH ×2 (19:29→21:06)
[2019-04-10] MEDS ORDERED: PEPCID 20 MG IV PREMIX* 20 MG/50 ML BAG IV ONE (21:44)
[2019-04-10] MEDS ORDERED: NS 1000 ML 1,000 ML IV SCH (22:00)
[2019-04-10 23:40] VITALS: BMI 23.3
[2019-04-11] MEDS ORDERED: TYLENOL 325 MG TAB PO PRN (04:29)
[2019-04-11] MEDS ORDERED: TYLENOL 325 MG TAB PO ONE (04:31)
[2019-04-11] MEDS: NS 1000 ML 1,000 ML IV SCH ×2 (05:38→08:49)
[2019-04-11] MEDS ORDERED: PEPCID 20 MG IV PREMIX* 20 MG/50 ML BAG IV SCH (09:00)
[2019-04-11] MEDS ORDERED: ESTRACE PO SCH (09:00)
[2019-04-11] MEDS ORDERED: FOLIC ACID TAB 1 MG PO SCH (09:00)
[2019-04-11 09:05] LABS: BASOPHILS % (AUTO) 0.6 % (0.2-1.0); EOSINOPHILS # (AUTO) 0.2 x10^3/uL (0.0-0.2); EOSINOPHILS % (AUTO) 4.5 % (0.9-2.9); HEMATOCRIT 30.3 % (36.0-47.0); HEMOGLOBIN 10.2 g/dL (12.0-16.0); LYMPHOCYTES # (AUTO) 1.3 X10^3/uL (1.3-2.9); LYMPHOCYTES % (AUTO) 30.3 % (21.0-51.0); MEAN CORPUSCULAR HGB CONC 33.8 g/dL (33.0-35.0); MEAN CORPUSCULAR VOLUME 94.8 fL (80.0-100.0); MEAN PLATELET VOLUME 8.7 fL (7.4-11.0); MONOCYTES # (AUTO) 0.4 x10^3/uL (0.3-0.8); NEUTROPHILS # (AUTO) 2.5 x10^3/uL (2.2-4.8); NEUTROPHILS % (AUTO) 56.6 % (42.0-75.0); PLATELET COUNT 197 X10^3/uL (150.0-450.0); RED CELL DISTRIBUTION WIDTH 13.5 % (11.6-16.5); WHITE BLOOD COUNT 4.4 X10^3/uL (3.6-10.0)
[2019-04-11 09:14] LABS: BLOOD UREA NITROGEN 5 mg/dL (7-18); CALCIUM 7.4 mg/dL (8.5-10.1); CHLORIDE 111 mmol/L (98-107); SODIUM 141 mmol/L (136-145); eGFR NON BLACK RACES > 60 (>60)
[2019-04-11 11:14] VITALS: BP 125/76
--- NOTE | 2019-04-11 11:59 | DR.SSS ---
SHORT STAY SUMMARY Admission Date Date of Admission: 04/10/19 Discharge Date Discharge Date: 04/11/19 Admission Diagnoses Admission Diagnoses: Dehydration Hypotension Discharge Diagnoses Discharge Diagnoses: Hypotension due to drug Anemia Chief Complaint Chief Complaint: dizziness History of Present Illness History of Present Illness: Patient presented with dizziness and low blood pressure. She reported checking her BP at home and it was 60/50. She takes lisinopril 5mg daily and she took it in the morning, this was not a new medication. Prior to feeling dizzy, she did take xanaflex. She has taken that before with no such side effects. In the ED, her SBP was in the 80s. She was started on IVF, anti-hypertensives were held. She was put on telemetry for further monitoring. Past Medical History Past Medical History: Migraines and Hypertension Past Surgical History Surgical History: Cholecystectomy and Hysterectomy Allergies Allergies Allergy/AdvReac Type Severity Reaction Status Date / Time Sulfa (Sulfonamide Allergy Verified 01/21/18 02:57 Antibiotics) [SULFA] Medications Home Medications: Sulfa (Sulfonamide Antibiotics) [SULFA] Allergy (Verified 01/21/18 02:57) CONTINUE taking the following medications lisinopril 5 mg PO DAILY 04/10/19 [History] Family History Family Medical History: Hypertension Social History Does patient currently use any type of tobacco product: No Have you used tobacco products in the last 12 months: No Type of Tobacco Use: None Does any household member use tobacco: No Alcohol Use: None Drug Use: None Review of Systems Constitutional: Weakness Eyes: No Symptoms Reported ENT: No Symptoms Reported Respiratory: No Symptoms Reported Cardiovascular: [place]adedness Gastrointestinal: No Symptoms Reported Genitourinary: No Symptoms Reported Musculoskeletal: Back Pain Skin: No Symptoms Reported Neurological: No Symptoms Reported Physical Exam Vital Signs: Last Vital Signs Temp 97.6 F 04/11/19 08:00 Pulse 100 H 04/11/19 09:53 Resp 13 04/11/19 08:30 BP 125/76 04/11/19 11:00 Pulse Ox 97 04/11/19 09:53 Oriented: Normal Eyes: Normal Nose: Normal Throat: Normal Respiratory: Clear Throughout Cardiovascular: Normal Auscultation: Bowel Sounds: Normal Palpation: Normal Tenderness: Normal Skin: Normal Musculoskeletal: Normal Psychiatric: Normal Mood Description: Calm Affect: Normal Speech Pattern: Clear and Appropriate Labs Labs: Laboratory Last Values WBC 4.4 X10^3/uL (3.6-10.0) 04/11/19 08:50 RBC 3.20 X10^6/uL (3.5-5.4) L 04/11/19 08:50 Hgb 10.2 g/dL (12.0-16.0) L 04/11/19 08:50 Hct 30.3 % (36.0-47.0) L 04/11/19 08:50 MCV 94.8 fL (80.0-100.0) 04/11/19 08:50 MCH 32.0 pg (27.0-34.0) 04/11/19 08:50 MCHC 33.8 g/dL (33.0-35.0) 04/11/19 08:50 RDW 13.5 % (11.6-16.5) 04/11/19 08:50 Plt Count 197 X10^3/uL (150.0-450.0) 04/11/19 08:50 MPV 8.7 fL (7.4-11.0) 04/11/19 08:50 Neut % (Auto) 56.6 % (42.0-75.0) 04/11/19 08:50 Lymph % (Auto) 30.3 % (21.0-51.0) 04/11/19 08:50 [place] % (Auto) 8.0 % (0.0-13.0) 04/11/19 08:50 Eos % (Auto) 4.5 % (0.9-2.9) H 04/11/19 08:50 Baso % (Auto) 0.6 % (0.2-1.0) 04/11/19 08:50 Neut # (Auto) 2.5 x10^3/uL (2.2-4.8) 04/11/19 08:50 Lymph # (Auto) 1.3 X10^3/uL (1.3-2.9) 04/11/19 08:50 [place] # (Auto) 0.4 x10^3/uL (0.3-0.8) 04/11/19 08:50 Eos # (Auto) 0.2 x10^3/uL (0.0-0.2) 04/11/19 08:50 Baso # (Auto) 0.0 X10^3/uL (0.0-0.1) 04/11/19 08:50 Absolute Nucleated RBC 0.0 /100WBC 04/11/19 08:50 PT 13.7 SECONDS (11.8-14.3) 04/10/19 18:45 INR Target Range - 04/10/19 18:45 INR 1.09 (0.8-1.3) 04/10/19 18:45 APTT 30.4 SECONDS (22.9-36.5) 04/10/19 18:45 PTT Comment - 04/10/19 18:45 D-Dimer < 100 ng/mL (0-400) 04/10/19 18:45 Sodium 141 mmol/L (136-145) 04/11/19 08:50 Corrected Sodium TNP 04/11/19 08:50 Potassium 3.8 mmol/L (3.5-5.1) 04/11/19 08:50 Chloride 111 mmol/L (98-107) H 04/11/19 08:50 Carbon Dioxide 23.0 mmol/L (21-32) 04/11/19 08:50 BUN 5 mg/dL (7-18) L 04/11/19 08:50 Creatinine 0.60 mg/dL (0.55-1.02) 04/11/19 08:50 Est GFR (MDRD) Af Amer > 60 (>60) 04/11/19 08:50 Est GFR (MDRD) Non-Af > 60 (>60) 04/11/19 08:50 Glucose 89 mg/dL (65-99) 04/11/19 08:50 POC Glucose (mg/dL) 98 mg/dL (65-99) 04/11/19 11:22 Calcium 7.4 mg/dL (8.5-10.1) L 04/11/19 08:50 Corrected Calcium 8.7 mg/dL (8.5-10.1) 04/10/19 18:45 Magnesium 1.9 mg/dL (1.7-2.9) 04/10/19 18:45 Total Bilirubin 0.10 mg/dL (0.2-1.0) L 04/10/19 18:45 AST 14 Units/L (15-37) L 04/10/19 18:45 ALT 10 Units/L (12-78) L 04/10/19 18:45 Alkaline Phosphatase 59 Units/L (46-116) 04/10/19 18:45 Creatine Kinase 34 Units/L (26-192) 04/10/19 18:45 CK-MB (CK-2) < 1.0 ng/mL (0-4.0) 04/10/19 18:45 CK/CKMB % Calc 2.9 % (<4) 04/10/19 18:45 Troponin I < 0.02 ng/mL (0-1.5) 04/10/19 18:45 Total Protein 6.2 g/dL (6.4-8.2) L 04/10/19 18:45 Albumin 3.0 g/dL (3.4-5.0) L 04/10/19 18:45 Globulin 3.2 g/dL (2.5-4.5) 04/10/19 18:45 Albumin/Globulin Ratio 0.9 Ratio (1.1-2.1) L 04/10/19 18:45 TSH 3rd Generation 1.977 uIU/mL (0.358-3.74) 04/10/19 18:45 Assessment/Plan 1: Dizziness due to drug induced hypotension, resolved with IV fluids. Patient denies dizziness. Orthostatic vitals normal. BP improved to 125/76. Patient eating and drinking well with no symptoms. 2: Anemia, hgb 10.2, likely dilutional with fluids, outpatient follow up, repeat CBC. Hospital Course Hospital Course: Patient admitted for dizziness and low BP. Patient reports feeling dizzy and BP in 60s after taking Xanaflex. Her BP improved significantly with hydration. Patient currently denies dizziness, orthostatic vitals negative. Patient advised to not take xanaflex as it can drop her blood pressure. Patient's electrolytes and cardiac profile normal. Anemia noted, could be due to fluids. Patient stable for discharge, follow up with PCP within 1 week. Discharge Medications Discharge Medications: Home Medication List lisinopril 5 mg PO DAILY 04/10/19 [History] Prescriptions: Discharge Disposition Discharge Disposition: Home
== END 2019-04-11 12:33 | disposition home or self-care (01) ==
LOC: ICU 18:07 → ER 18:07 → ICU 22:26
PROVIDERS: ADMIT Family Medicine; ATTEND Family Medicine
CPT/HCPCS: 36415; 71010; 71045; 80048; 80053; 82550; 82553; 83735; 84443; 84484; 85025; 85378; 85610; 85730; 93005; 96360; 96361; 96365; 96367; 99285; A4222; S0028; G0378; J3490; J7030